=== PATIENT | female | born 1935 | race Asian ===

== ENCOUNTER 2025-08-14 10:30 | Inpatient (IN) | payer BC ==
[2025-08-14] VITALS (11 sets, daily range): BP systolic 96–172; BP diastolic 47–67; PULSE 53–67; RESP 14–21; TEMP 36.2–36.3918; O2SAT 97–100
[~2025-08-14] VITALS: Ht 154.9 cm; Wt 58.6 kg
[2025-08-14 11:42] LABS: HEMATOCRIT. 26.1 % (36.0-48.0); HEMOGLOBIN. 8.0 g/dL (12.0-16.0); MEAN PLATELET VOLUME 7.9 fl (7.4-10.4); PLATELET 154 x1000/uL (130-400); RED BLOOD CELL COUNT 2.70 mill/uL (4.2-5.4); RED CELL DISTRIBUTION WIDTH 22.7 % (11.6-14.6)
[2025-08-14 12:05] LABS: CREATININE 4.8 mg/dL (0.6-1.0)
[2025-08-14 12:06] LABS: PROTEIN TOTAL 6.8 g/dL (6.0-8.3); TROPONIN I HIGH SENSITIVITY 50 ng/L (3.0-34); UREA NITROGEN BLOOD 52 mg/dL (9-23)
[2025-08-14 12:07] LABS: ASPARTATE AMINOTRANSFERASE 25 IU/L (<34)
[2025-08-14 12:08] LABS: BILIRUBIN DIRECT 0.2 mg/dL (<=3.0); BILIRUBIN TOTAL 0.5 mg/dL (0.1-1.0)
[2025-08-14] MEDS ORDERED: MAGNESIUM/ALUMINUM HYDROXIDE/SIMETHICONE 30ML UDC PO PRN (13:00)
[2025-08-14] MEDS ORDERED: HYDROCODONE/ACETAMINOPHEN 5/325MG TABLET PO PRN (13:00)
[2025-08-14] MEDS ORDERED: ACETAMINOPHEN 325MG TABLET PO PRN (13:00)
[2025-08-14] MEDS ORDERED: ONDANSETRON HCL 4MG/2ML INJ IV PRN (13:00)
[2025-08-14] MEDS ORDERED: ENOXAPARIN 40MG/0.4ML SYR SUBCUT SCH (13:00)
[2025-08-14] MEDS ORDERED: MORPHINE SULFATE 2 MG/ML INJ (NOT FOR IM USE) IV PRN (13:00)
[2025-08-14] MEDS ORDERED: IPRATROPIUM/ALBUTEROL 0.5-3(2.5)MG/3ML NEB NEB PRN (13:00)
[2025-08-14] MEDS: PANTOPRAZOLE SODIUM 40 MG/VIAL IV SCH (13:00)
[2025-08-14] MEDS ORDERED: NALOXONE HCL 0.4MG/ML VIAL IV PRN (13:15)
[2025-08-14 13:53] LABS: HEPATITIS A AB IGM REACTIVE (Negative)
[2025-08-14 13:54] LABS: HEPATITIS B CORE AB IGM NEGATIVE (Negative); HEPATITIS C AB NON REACTIVE (Neg) (Negative)
[2025-08-14] MEDS: CLONIDINE 0.1MG TABLET PO PRN (14:47)
[2025-08-14] MEDS: ENOXAPARIN 30MG/0.3ML SYR SUBCUT SCH (14:48)
[2025-08-14 15:23] LABS: BAND% 4.0 % (1.0-6.0); EOSINOPHILS % MANUAL 14.0 % (0.0-5.0); LYMPHOCYTES % MANUAL 5.0 % (20.0-60.0); METAMYELOCYTES % 3.0 % (0-0); MONOCYTES % MANUAL 2.0 % (2.0-8.0); NEUTROPHILS % MANUAL 72.0 % (45.0-75.0); PLATELET ESTIMATE NORMAL
[2025-08-14] MEDS: CEFAZOLIN 1000MG PREMIX 50 ML IV SCH (18:00)
[2025-08-14] MEDS ORDERED: DOCU-138 MT (18:11)
[2025-08-14] MEDS ORDERED: ASPI-1497 PO (18:11)
[2025-08-14] MEDS ORDERED: ATOR20TA65 MT (18:11)
[2025-08-14] MEDS ORDERED: CARV3.1242 MT (18:11)
[2025-08-14] MEDS ORDERED: SEVE800T8 MT (18:13)
[2025-08-14] MEDS ORDERED: AMLO10TA80 MT (18:13)
[2025-08-14] MEDS ORDERED: FOLI0.8T53 MT (18:13)
[2025-08-14] MEDS ORDERED: LOSA25TA26 MT (18:14)
[2025-08-14] MEDS ORDERED: HYDR50TA40 MT (18:15)
[2025-08-14] MEDS ORDERED: ZOLPIDEM TARTRATE 5MG TABLET PO PRN (21:00)
[2025-08-15] VITALS: BP 111/33; PULSE 47; RESP 19; TEMP 36.2; O2SAT 96
[2025-08-15 01:02] LABS: TROPONIN I HIGH SENSITIVITY 115 ng/L (3.0-34)
[2025-08-15 04:00] VITALS: BP 143/36; PULSE 50; RESP 19; TEMP 36.3; O2SAT 95
[2025-08-15 08:00] VITALS: BP 148/82; PULSE 57; RESP 19; TEMP 36.4; O2SAT 98
[2025-08-15] MEDS: ASPIRIN 81MG EC TABLET PO SCH (08:29)
[2025-08-15] MEDS: SEVELAMER CARBONATE 800 MG TABLET PO SCH (08:29)
[2025-08-15] MEDS: FOLIC ACID/VITAMIN B COMP W-C TABLET PO SCH (08:29)
[2025-08-15] MEDS: CARVEDILOL 3.125 MG TABLET PO SCH (08:30)
[2025-08-15] MEDS: AMLODIPINE 10MG TABLET PO SCH (08:30)
[2025-08-15] MEDS: LOSARTAN 25 MG TABLET PO SCH (08:30)
[2025-08-15] MEDS: DOCUSATE SODIUM 100MG CAPSULE PO SCH (08:30)
[2025-08-15] MEDS: HYDRALAZINE HCL 50MG TABLET PO SCH (08:31)
[2025-08-15] MEDS: DIPHENHYDRAMINE 50MG/ML VIAL IV PRN (08:32)
[2025-08-15 09:27] LABS: BASOPHILS % 0.3 % (0.0-2.0); EOSINOPHILS % 10.6 % (0.0-5.0); HEMATOCRIT. 23.2 % (36.0-48.0); HEMOGLOBIN. 7.4 g/dL (12.0-16.0); LYMPHOCYTES % 13.2 % (20.0-50.0); MEAN PLATELET VOLUME 8.7 fl (7.4-10.4); MONOCYTES % 12.6 % (2.0-8.0); NEUTROPHILS % 63.3 % (40.0-76.0); PLATELET 144 x1000/uL (130-400); RED BLOOD CELL COUNT 2.42 mill/uL (4.2-5.4); RED CELL DISTRIBUTION WIDTH 23.0 % (11.6-14.6)
[2025-08-15 09:28] LABS: ADD RBC MORPHOLOGY NO
[2025-08-15 12:00] VITALS: BP 132/36; PULSE 52; RESP 18; TEMP 36.3; O2SAT 98
[2025-08-15 16:00] VITALS: BP 154/48; PULSE 51; RESP 18; TEMP 36.4; O2SAT 98
[2025-08-15 20:00] VITALS: BP 162/39; PULSE 65; RESP 18; TEMP 36.2; O2SAT 99
[2025-08-15] MEDS: ATORVASTATIN CALCIUM 20MG TABLET PO SCH (20:28)
[2025-08-16] VITALS (17 sets, daily range): BP systolic 112–204; BP diastolic 42–76; PULSE 52–172; RESP 17–51; TEMP 36.2–36.6; O2SAT 97–99
[2025-08-16] MEDS: HYDRALAZINE 20MG/ML VIAL IV NR (01:44)
[2025-08-16 12:44] LABS: BASOPHILS % 2.5 % (0.0-2.0); EOSINOPHILS % 8.5 % (0.0-5.0); LYMPHOCYTES % 9.9 % (20.0-50.0); MEAN PLATELET VOLUME 8.6 fl (7.4-10.4); MONOCYTES % 14.5 % (2.0-8.0); NEUTROPHILS % 64.6 % (40.0-76.0); PLATELET 175 x1000/uL (130-400); RED BLOOD CELL COUNT 2.91 mill/uL (4.2-5.4); RED CELL DISTRIBUTION WIDTH 22.1 % (11.6-14.6)
[2025-08-16 12:52] LABS: ADD RBC MORPHOLOGY NO; HEMATOCRIT. 27.2 % (36.0-48.0); HEMOGLOBIN. 8.7 g/dL (12.0-16.0)
[2025-08-16 12:57] LABS: UREA NITROGEN BLOOD 49.0 mg/dL (9-23)
[2025-08-16 13:07] LABS: CREATININE 5.1 mg/dL (0.6-1.0)
[2025-08-16] MEDS: HYDRALAZINE 20MG/ML VIAL IV PRN (15:36)
[2025-08-16] MEDS: IPRATROPIUM/ALBUTEROL 0.5-3(2.5)MG/3ML NEB HHN SCH (17:47)
[2025-08-16 18:36] LABS: BG BASE EXCESS -0.1 mmol/L (-2.0-3.0); BG CARBOXYHEMOGLOBIN 1.7 % (0.5-1.5); BG DEOXYHEMOGLOBIN 0.2 % (0.0-5.0); BG FRACTION INSPIRED OXYGEN 60; BG HCO3 ACT 23.5 mmol/L (21.0-28.0); BG METHEMOGLOBIN 0.3 % (0.5-1.5); BG OXYGEN SATURATION 99.8 % (94.0-98.0); BG OXYHEMOGLOBIN 97.8 % (94.0-98.0); BG PCO2 33.7 mmHg (32.0-45.0); BG PH 7.461 (7.350-7.450); BG PO2 285.4 mmHg (83.0-108.0); BG SAMPLE SITE RIGHT RADIAL; BG TOTAL HEMOGLOBIN 8.4 g/dL (12.0-16.0); BG VENT MODE HHN
[2025-08-16] MEDS: HYDRALAZINE HCL 100MG TABLET PO SCH (18:51)
[2025-08-16] MEDS: IPRATROPIUM/ALBUTEROL 0.5-3(2.5)MG/3ML NEB HHN PRN (20:37)
[2025-08-16 22:20] LABS: TROPONIN I HIGH SENSITIVITY 67 ng/L (3.0-34)
[2025-08-17] VITALS: BP 152/46; PULSE 61; RESP 18; TEMP 36.3; O2SAT 99
[2025-08-17 04:00] VITALS: BP 150/43; PULSE 58; RESP 18; TEMP 36.2; O2SAT 100
[2025-08-17 08:00] VITALS: BP 156/44; PULSE 61; RESP 15; TEMP 36.6; O2SAT 100
[2025-08-17] MEDS: LOSARTAN 50 MG TABLET PO SCH (09:06)
[2025-08-17 11:44] LABS: BG BASE EXCESS -0.2 mmol/L (-2.0-3.0); BG CARBOXYHEMOGLOBIN 2.2 % (0.5-1.5); BG DEOXYHEMOGLOBIN 2.3 % (0.0-5.0); BG FRACTION INSPIRED OXYGEN 21; BG HCO3 ACT 23.5 mmol/L (21.0-28.0); BG METHEMOGLOBIN 0.3 % (0.5-1.5); BG OXYGEN SATURATION 97.6 % (94.0-98.0); BG OXYHEMOGLOBIN 95.2 % (94.0-98.0); BG PCO2 33.9 mmHg (32.0-45.0); BG PH 7.459 (7.350-7.450); BG PO2 91.1 mmHg (83.0-108.0); BG SAMPLE SITE RIGHT RADIAL; BG TOTAL HEMOGLOBIN 7.5 g/dL (12.0-16.0); BG VENT MODE ROOM AIR
[2025-08-17 12:00] VITALS: BP 154/47; PULSE 67; RESP 16; TEMP 36.5; O2SAT 100
[2025-08-17 12:40] LABS: HEMATOCRIT. 25.3 % (36.0-48.0); HEMOGLOBIN. 7.6 g/dL (12.0-16.0); MEAN PLATELET VOLUME 9.1 fl (7.4-10.4); PLATELET 156 x1000/uL (130-400); RED BLOOD CELL COUNT 2.58 mill/uL (4.2-5.4); RED CELL DISTRIBUTION WIDTH 22.2 % (11.6-14.6)
[2025-08-17 12:48] LABS: CREATININE 4.8 mg/dL (0.6-1.0)
[2025-08-17 12:49] LABS: UREA NITROGEN BLOOD 31.0 mg/dL (9-23)
[2025-08-17 13:36] LABS: EOSINOPHILS % MANUAL 7.0 % (0.0-5.0); LYMPHOCYTES % MANUAL 8.0 % (20.0-60.0); MONOCYTES % MANUAL 11.0 % (2.0-8.0); MYELOCYTES % 1.0 % (0-0); NEUTROPHILS % MANUAL 73.0 % (45.0-75.0); PLATELET ESTIMATE NORMAL
[2025-08-17 16:00] VITALS: BP_SYST 133; BP_DIAS 39; BP_DIAS 49; PULSE 57; RESP 14; RESP 17; TEMP 36.4; O2SAT 100; O2SAT 97
[2025-08-17 20:00] VITALS: BP 148/34; PULSE 59; RESP 18; TEMP 36.5; O2SAT 100
[2025-08-18] VITALS (10 sets, daily range): BP systolic 132–177; BP diastolic 40–75; PULSE 54–76; RESP 16–18; TEMP 36.3–36.6696; O2SAT 97–100
[2025-08-18] MEDS ORDERED: HYDR100T31 PO (15:14)
[2025-08-19] VITALS: BP 140/49; PULSE 53; RESP 16; TEMP 36.8; O2SAT 100
[2025-08-19 04:00] VITALS: BP 156/52; PULSE 52; RESP 16; TEMP 36.7; O2SAT 100
[2025-08-19 08:00] VITALS: BP 143/40; PULSE 73; RESP 16; TEMP 36.1; O2SAT 100
[2025-08-19 10:30] VITALS: BP 143/40; PULSE 73; RESP 18; TEMP 96.9
== END 2025-08-19 11:10 | disposition home health service (06) | DRG 73 ==
LOC: ER 10:30 → 6WST 12:32 → EDBEDREQ 12:37 → EDBEDREQTM 12:37
PROVIDERS: ADMIT Internal Medicine; ATTEND Internal Medicine
PROC: 5A1D70Z Performance of Urinary Filtration, Intermittent, Less than 6 Hours Per Day (ICD-10-PCS; principal; 2025-08-14)
PROC: 5A1D70Z Performance of Urinary Filtration, Intermittent, Less than 6 Hours Per Day (ICD-10-PCS; 2025-08-16)
PROC: 5A1D70Z Performance of Urinary Filtration, Intermittent, Less than 6 Hours Per Day (ICD-10-PCS; 2025-08-18)
DX: G90.89 Other disorders of autonomic nervous system (principal); J96.01 Acute respiratory failure with hypoxia; N18.6 End stage renal disease; I12.0 Hypertensive chronic kidney disease with stage 5 chronic kidney disease or end stage renal disease; N39.0 Urinary tract infection, site not specified; Z99.2 Dependence on renal dialysis; B96.89 Other specified bacterial agents as the cause of diseases classified elsewhere; J45.909 Unspecified asthma, uncomplicated; D64.9 Anemia, unspecified; E87.70 Fluid overload, unspecified; E78.5 Hyperlipidemia, unspecified; L29.9 Pruritus, unspecified; L85.3 Xerosis cutis; R00.1 Bradycardia, unspecified; R79.89 Other specified abnormal findings of blood chemistry; Z79.899 Other long term (current) drug therapy
CPT/HCPCS: 36415; 36600; 71045; 80048; 80076; 82375; 82805; 82962; 83735; 83880; 84484; 85025; 86705; 86709; 87077; 87186; 87340; 90935; 93306; 93880; 93970; 94640; 96372; 99291; J0360; J0690; J1200; J1650; J2470